=== PATIENT | female | born 1995 | race Caucasian/White ===

== ENCOUNTER 2016-07-26 14:04 | Outpatient (CLI) | payer OTHER ==
[~2016-07-26] VITALS: Ht 180.3 cm; Wt 64.6 kg
[2016-07-26 14:24] VITALS: BP 101/53
[2016-07-26 14:58] LABS: BASOPHILS # (AUTO) 0.1 10^3/uL (0.0-0.1); BASOPHILS % (AUTO) 2 % (0-10); EOSINOPHILS # (AUTO) 0.1 10^3/uL (0.0-0.3); EOSINOPHILS % (AUTO) 1 % (0-10); LYMPHOCYTES # (AUTO) 1.3 X 10^3 (1.0-4.0); LYMPHOCYTES % (AUTO) 34 % (12-44); MEAN CORPUSCULAR HEMOGLOBIN 29 PG (25-34); MEAN CORPUSCULAR HGB CONC 35 G/DL (32-36); MEAN CORPUSCULAR VOLUME 84 FL (80-99); MEAN PLATELET VOLUME 9.4 FL (7.4-10.4); MONOCYTES # (AUTO) 0.3 X 10^3 (0.0-1.0); MONOCYTES % (AUTO) 7 % (0-12); NEUTROPHILS # (AUTO) 2.1 X 10^3 (1.8-7.8); NEUTROPHILS % (AUTO) 56 % (42-75); PLATELET COUNT 274 10^3/uL (130-400); RED BLOOD COUNT 4.66 10^6/uL (4.35-5.85); RED CELL DISTRIBUTION WIDTH 13.1 % (10.0-14.5); WHITE BLOOD COUNT 3.8 10^3/uL (4.3-11.0)
== END 2016-07-26 15:39 | disposition home or self-care (01) ==
LOC: PREOP 14:04
PROVIDERS: ATTEND Obstetrics & Gynecology
DX: Z01.812 Encounter for preprocedural laboratory examination (principal); Z11.2 Encounter for screening for other bacterial diseases; K80.20 Calculus of gallbladder without cholecystitis without obstruction
CPT/HCPCS: 36415; 85025; 87081

== ENCOUNTER 2016-08-07 10:34 | Day surgery (SDC) | payer OTHER ==
[~2016-08-07] VITALS: Ht 180.3 cm; Wt 64.6 kg
[2016-08-07] MEDS ORDERED: ceFAZolin 1 GM/NS 50 ML IVPB IV ONE ×2 (11:00)
[2016-08-07] MEDS ORDERED: CATHETER FLUSH 10 ML SYR IV PRN (11:00)
[2016-08-07 11:19] VITALS: BP 100/56
[2016-08-07] MEDS ORDERED: LACTATED RINGERS 1,000 ML IV PRN (11:38)
[2016-08-07] MEDS ORDERED: LACTATED RINGERS 1,000 ML IV ONE (11:41)
[2016-08-07] MEDS ORDERED: proPOfol 200 MG/20 ML (DIPRIVAN) VIAL IV ONE (11:41)
[2016-08-07] MEDS ORDERED: LIDOCAINE PF 2% 10 ML (XYLOCAINE) AMP ONE (11:41)
[2016-08-07] MEDS ORDERED: ONDANSETRON 4 MG/2 ML (SDV) Z0FRAN ONE (11:41)
[2016-08-07] MEDS ORDERED: ROCURONIUM 50 MG/5 ML (ZEMURON) VIAL IV ONE (11:41)
[2016-08-07] MEDS ORDERED: fentaNYL INJECTION 100 MCG/2 ML AMP ONE (11:42)
[2016-08-07] MEDS ORDERED: MIDAZOLAM 2 MG/2 ML (VERSED) VIAL ONE (11:42)
[2016-08-07] MEDS ORDERED: D5 LR IV SOLUTION 1,000 ML IV SCH (12:02)
--- NOTE | 2016-08-07 12:02 | Progress Note-Pre Operative ---
Pre-Operative Progress Note H&P Reviewed The H&P was reviewed, patient examined and no changes noted. Date H&P Reviewed: August 07, 2016 Time H&P Reviewed: 12:02 Pre-Operative Diagnosis: ccomplex left ovarian mass SUNSHINE SNOW MD August 07, 2016 12:02 pm
[2016-08-07] MEDS ORDERED: OXYC-202 PO (12:04)
--- NOTE | 2016-08-07 12:06 | Discharge Instructions ---
Discharge Instructions Discharge Medications New, Converted or Re-Newed RX: RX on Chart Patient Instructions Patient Instructions: as directed Return to The Hospital For: as instructed Activity & Diet Discharge Diet: No Restrictions Activity as Tolerated: No Orders-Post D/C & Referrals Follow Up Appt: return to clinic on Sunday, August 11, 2016 at 930 a.m. for suture removal Activity: Rest for 24 hours, than as tolerated. Wound Care: May remove Band-Aid tomorrow. Replace as desired. Keep incisions clean and dry. Wash daily with soap and water. Diet: As tolerated-Clear Liquids only if nauseated. May shower or tub bathe as desired. No driving for 24 hours, no alcoholic beverages for 24 hours, and nothing per vagina (no tampons, douching, or intercourse) for 2 weeks. Patient to return to the clinic as soon as possible for: Temperature greater than 101F, Severe Pain, Foul discharge from incision or vagina, Excessive Bleeding (more than a period). SUNSHINE SNOW MD August 07, 2016 12:06 pm
[2016-08-07] MEDS ORDERED: KETOROLAC 30 MG/ML VIAL IVP ONE (12:15)
[2016-08-07] MEDS ORDERED: MEPERIDINE (DEMEROL) INJ 100 MG/ML IM ONE (12:15)
[2016-08-07] MEDS ORDERED: ESTROGENS CONJ IV 25 MG/5 ML (PREMARIN) VIAL IVP ONE (12:15)
[2016-08-07] MEDS ORDERED: PROMETHAZINE INJ 25 MG/ML (PHENERGAN) AMP IM ONE (12:15)
[2016-08-07] MEDS ORDERED: ONDANSETRON 4 MG/2 ML (SDV) Z0FRAN IVP PRN ×2 (12:15→13:15)
[2016-08-07] MEDS ORDERED: oxyCODONE/APAP 10/325MG (PERCOCET 10) TABLET PO PRN (12:15)
[2016-08-07] MEDS ORDERED: GLYCOPYRROLATE 0.2 MG/ML (ROBINUL) 2 ML VIAL ONE (12:45)
[2016-08-07] MEDS ORDERED: NEOSTIGMINE (BLOXIVERZ ) 1 MG/1ML 10 ML VIAL ONE (12:45)
[2016-08-07] MEDS ORDERED: SEVOFLURANE (ULTANE) 15 ML INHAL SOLN ONE (13:03)
[2016-08-07] MEDS ORDERED: MEPERIDINE (DEMEROL) INJ 50 MG/ML IVP PRN (13:15)
[2016-08-07] MEDS ORDERED: HYDROmorphone (DILAUDID) 2 MG/ML VIAL IVP PRN (13:15)
[2016-08-07] MEDS ORDERED: morphine INJ 10 MG/ML 1ML (SYR OR VIAL) ONE (13:17)
[2016-08-07] MEDS ORDERED: WATER (STERILE) FOR INJECTION 10 ML ONE (13:18)
[2016-08-07] MEDS ORDERED: ESTROGENS CONJ IV 25 MG/5 ML (PREMARIN) VIAL ONE (13:18)
[2016-08-07] MEDS ORDERED: KETOROLAC 30 MG/ML VIAL ONE (13:18)
[2016-08-07] MEDS: morphine INJ 10 MG/ML 1ML (SYR OR VIAL) IVP PRN ×2 (13:23→13:30)
[2016-08-07 14:10] VITALS: BP 104/71
[2016-08-07 14:40] VITALS: BP 102/66
[2016-08-07 15:10] VITALS: BP 105/69
--- NOTE | 2016-08-08 05:04 | OPERATIVE REPORT ---
DATE OF SERVICE: 08/07/2016 PREOPERATIVE DIAGNOSIS: Left complex ovarian cyst. POSTOPERATIVE DIAGNOSES: Left complex ovarian cyst, sigmoid adhesion to the left pelvic brim. OPERATIVE PROCEDURES: Laparoscopic left ovarian cystectomy, adhesiolysis. OPERATIVE DESCRIPTION: With the patient in the supine position under satisfactory general anesthesia, she was repositioned in the dorsal lithotomy position in the [facility] and prepped and draped in the usual fashion for abdominal and vaginal surgery. The urinary bladder was emptied with a straight catheter. A weighted speculum was placed in the posterior fornix of the vagina. Cervix was exposed and grasped anteriorly with single-tooth tenaculum. The uterus was sounded to 9 cm with the uterine sound. The cervix was then serially dilated with Rishi dilators to accommodate a HUMI manipulator, which was placed and with 3 mL of air. The tenaculum and speculum were removed. The patient was brought in the low dorsal lithotomy position. A 5-mm incision was made in the left upper quadrant, 12 mm in the base of the umbilicus and 5 mm superior to the symphysis pubis. All 3 incision sites were infiltrated with 0.25% Marcaine with epinephrine prior to the incision. Veress needle was placed through the umbilical incision. Correct placement was confirmed with a water drop test. The abdomen was insufflated with 2.4 L of carbon dioxide. The Veress needle was removed. A 5-mm Optiview laparoscopic port was placed through left upper quadrant. The patient was placed in Trendelenburg and then a 12-mm port was placed through the umbilical incision, 5-mm port through the suprapubic incision with transillumination and direct vision. All those ports would be in place. The uterus was elevated with manipulator. It was normal appearance. The fallopian tubes were normal appearance. The right ovary was normal appearance. The left ovary was distended with a cyst contained completely within the body of the ovary. Laparoscope was rotated. The appendix was normal and were lying on the pelvic brim on the right. The sigmoid was adherent to the left pelvic brim, obscuring access partially to the left tube and ovary. These adhesions were taken down with very carefully meticulous dissection to allow complete visualization of the ovary. The ovary was then elevated. An incision was made in the antimesenteric border of the ovary and dissection carried down to the cyst. The cyst wall was then visible. The incision was continued almost the length of the antimesenteric border of the ovary which would be about 4 to 4.5 cm. The cyst was then very carefully and meticulously dissected free. It shield out relatively nicely. There were a couple of blood vessels encountered along the way that were cauterized as they were encountered. The cyst was eventually removed intact, placed in an Endobag and brought out through the umbilical incision. No spillage occurred in the abdominal cavity. The ovary was examined for hemostasis. That being complete, it was allowed to lay back down into the ovarian fossa. The uterus was laid back down over both ovaries. The pelvis was completely normal appearance. There was no evidence of endometriosis or of abnormal pathology in the pelvis. With the procedure complete, the operative instruments were removed under direct vision as were the ports. There was no bleeding at any of the port site. The abdomen was evacuated of the insufflating gas and in the process, removing the port. The skin incision was closed with interrupted sutures of 3-0 nylon, the fascia at the umbilical incision was closed with [id number] suture of 2-0 Vicryl. The HUMI manipulator was removed from the uterus and from the vagina. Speculum was replaced in the vagina. The cervix was examined for hemostasis, which was complete. Sponge and needle counts were correct on completion of delivery. Estimated blood loss for delivery was minimal. The patient tolerated the procedure well and was transferred to the recovery room in stable condition after being uneventfully awakened from general anesthesia. Plan was for discharge home PAR. Job ID: [id number] DocumentID: [id number] Dictated Date: 08/07/2016 12:47:47 Photograph Developer Date: 08/08/2016 02:22:31 Dictated By: SUNSHINE SNOW MD
== END 2016-08-07 16:20 | disposition home or self-care (01) ==
LOC: SDC 10:34
PROVIDERS: ATTEND Obstetrics & Gynecology
DX: N83.202 Unspecified ovarian cyst, left side (principal); N73.6 Female pelvic peritoneal adhesions (postinfective)
CPT/HCPCS: 84703